=== PATIENT | female | born 1980 | race Two or more races ===

== ENCOUNTER 2019-04-06 14:16 | Emergency (ER) | payer MEDICAID ==
[~2019-04-06] VITALS: Ht 167.6 cm; Wt 81.6 kg
[2019-04-06 15:50] VITALS: BP 132/68
[2019-04-06] MEDS ORDERED: ACETAMINOPHEN 500 MG TAB PO ONE (16:00)
== END 2019-04-06 16:19 | disposition home or self-care (01) ==
LOC: ER 14:16
DX: M48.02 Spinal stenosis, cervical region (principal); G44.309 Post-traumatic headache, unspecified, not intractable
CPT/HCPCS: 70450; 72125

== ENCOUNTER 2019-05-24 09:17 | Emergency (ER) | payer MEDICAID ==
[~2019-05-24] VITALS: Ht 167.6 cm; Wt 81.6 kg
[2019-05-24 09:24] VITALS: BP 121/70
[2019-05-24] MEDS ORDERED: IBUPROFEN 800 MG TAB PO ONE (11:00)
[2019-05-24] MEDS ORDERED: cefTRIAXone SOD 1,000 MG VL IM ONE (11:00)
== END 2019-05-24 11:18 | disposition home or self-care (01) ==
LOC: ER 09:17
DX: L03.115 Cellulitis of right lower limb (principal)
CPT/HCPCS: 96372; 99283; J0696

== ENCOUNTER 2019-05-30 10:23 | Emergency (ER) | payer MEDICAID ==
[~2019-05-30] VITALS: Ht 167.6 cm; Wt 81.6 kg
[2019-05-30 10:33] VITALS: BP 118/73
== END 2019-05-30 11:27 | disposition home or self-care (01) ==
LOC: ER 10:23
DX: Z48.01 Encounter for change or removal of surgical wound dressing (principal)

== ENCOUNTER 2024-05-21 13:22 | Emergency (ER) | payer MEDICAID ==
[~2024-05-21] VITALS: Ht 167.6 cm; Wt 77.3 kg
[2024-05-21 15:17] VITALS: TEMP 98.9; O2SAT 100
[2024-05-21] MEDS: LIDOCAINE W/ EPINEPHRINE 1% 20ML VIAL ID ONE (15:51)
[2024-05-21] MEDS: TETANUS-DIPTH-ACEL PERTUSSIS 0.5ML SYR Tdap IM ONE (16:02)
[2024-05-21 16:03] VITALS: BP 199/116; PULSE 18; RESP 18
[2024-05-21] MEDS: MORPHINE SULFATE 4 MG/ML SYR/VIAL IV ONE (16:03)
[2024-05-21] MEDS: AMPICILLIN & SULBACTAM SODIUM 3 GM in SODIUM CHL 0.9% 100 ML IV ONE (16:20)
[2024-05-21] MEDS: BACITRACIN TOP OINT 1 UD PKG TOP ONE (17:18)
[2024-05-21] MEDS ORDERED: HYDR-4902 PO (17:46)
[2024-05-21] MEDS ORDERED: AUG875T PO (17:46)
--- NOTE | 2024-05-21 17:48 | ED.PDOC ---
HPI Comments Kelsey Juarez is a 44-year-old female with past medical history of hysterectomy and cholecystectomy who presents to the ED s/p dog bite x 1 day. Animal was a Minesh Corse Immunization status up-to-date Denies abnormal animal behavior Denies history of immunocompromise (HIV hep B hep C) Denies fever chills night sweats Denies redness around the area Chief Complaint: Animal Bite Time Seen by MD: 14:27 Primary Care Provider: NONE Reviewed Notes: Nurses Notes, Medications, Allergies Allergies: Coded Allergies: NO KNOWN ALLERGIES (Unverified , 12/04/14) Home Meds Active Scripts Amoxicillin & Pot Clavulanate (AUGMENTIN TABLET) 875 Mg Tb, 875 MG PO BID for 10 Days, #20 TAB 0 Refills Prov:MANAV MCNEIL PROCESS ARCHITECT 05/21/24 Hydrocodone-Acetaminophen (Hydrocodone Bitartrate/AC 5-325 mg) 1 Tab Tab, 1 TAB PO Q6HP PRN for 3 Days, #12 TAB 0 Refills Prov:MANAV MCNEIL PROCESS ARCHITECT 05/21/24 Information Source: Patient Mode of Arrival: EMS Complexity: Complex Laceration Length (cm): 4 Skin Type: Jagged Depth of Injury: Skin Tendon Injury: 0% Capillary Refill: < 3 seconds Tender: Severe Discharge: None Erythema: Localized to Wound Edges Past Medical History PAST MEDICAL HISTORY: Denies Surgical History: Denies all surgeries SHAREPOINT SOLUTIONS ARCHITECT History: Denies all SHAREPOINT SOLUTIONS ARCHITECT Hx Family History Family History: Reviewed,noncontributory to illness Social History Smoker: Non-Smoker Lives In: Home All Other Systems: Reviewed and Negative (Per HPI) Physical Exam General Appearance: No Apparent Distress, Normal HEENT: Normal ENT Inspection, Pharynx Normal, TMs Normal Neck: Full Range of Motion, Non-Tender, Normal, Normal Inspection Respiratory: Chest Non-Tender, Lungs Clear, No Accessory Muscle Use, No Respiratory Distress, Normal Breath Sounds Cardiovascular: No Edema, No JVD, No Murmur, No Gallop, Normal Peripheral Pulses, Regular Rate/Rhythm Breast Exam: Deferred Gastrointestinal: No Organomegaly, Non Tender, No Pulsatile Mass, Normal Bowel Sounds, Soft Genitalia: Deferred Pelvic: Deferred Rectal: Deferred Extremities: No calf tenderness, Normal capillary refill, Normal inspection, Normal range of motion, Non-tender, No pedal edema Musculoskeletal : Apperance: Normal Neurologic: Alert, No Motor Deficits, Normal Affect, Normal Mood, No Sensory Deficits Cerebellar Function: Normal Reflexes: Normal Skin: Dry, Normal Color, Warm Lymphatic: No Adenopathy Was a procedure done? Was a procedure done?: Yes Sedation Sedation?: No Laceration Repair : Location Left medial AC Length 3 Anesthetic: Lidocaine Laceration Repair Prep: Saline, by Irrigation, Manual Scrub Laceration Repair Wound Comple: epidermis/dermis repair Laceration Repair: Size (4-0), Simple, Bacitracin, Non-adherent gauze, Gauze Informed consent obtained: Yes Risks, benefits, and alternati: Yes Differential diagnosis Generic Laceration: Abrasion/Contusion, Laceration, Avulsion X-Ray, Labs, Meds, VS Vital Signs Date Time Temp Pulse Resp B/P (MAP) Pulse Ox O2 Delivery O2 Flow Rate FiO2 05/21/24 16:03 18 18 199/116 05/21/24 15:17 98.9 98 14 120/69 (86) 100 98.9 05/21/24 13:30 98.9 98 14 120/89 (99) 100 X-Ray, Labs, Meds, VS Comment Procedure-laceration repair Location: 2.5 cm laceration to left medial ac, 2.5 cm lac to left medial proxim al ulnar, 5 cm laceration to left forearm shaft,, 1 cm lac to left lateral prox radius, 1 cm puncture wound, 2 cm x 1.5 cm lac to left proximal ulnar, 1 cm puncture wound, .75 cm puncture wound, 5 cm right proximal medial humerus 17 stitches total The skin edges of the laceration were infiltrated with 1% lidocaine The skin surrounding the laceration was scrubbed with Betadine soaked sterile gauze The laceration was irrigated under high-pressure with a 60 mL syringe A total of 2L sterile water was used. Including diluted Betadine solution The laceration was prepped in sterile fashion with sterile drapes On examination under direct light, there was no foreign body seen The laceration was repaired in simple interrupted technique using There was no continuing bleeding on repair. There were no complications related to repair In the ER patient received IV antibiotics and tetanus was updated. Patient prescribed with the Augmentin x7 days. Advised to return in two days or sooner for wound check Keep wound dry for 24 to 48 hours; dry dressing may be changed Protect from sunlight and keep area clean and dry. Use soap and water if it ge ts dirty High risk of possible scarring and education provided on ways to minimize scarring after wound heals Also provided education on possible complications post procedure including wound dehiscence, infection, etc. Time of 1ST Reevaluation: 18:00 Reevaluation 1ST: Improved Patient Education/Counseling: Diagnosis, Treatment Family Education/Counseling: Diagnosis, Treatment Departure 1 Departure Time of Disposition: 18:52 Impression: Primary Impression: Dog bite Qualified Codes: W54.0XXA - Bitten by dog, initial encounter Disposition: HOME / SELF CARE / HOMELESS Condition: Fair e-Prescriptions Amoxicillin & Pot Clavulanate (AUGMENTIN TABLET) 875 Mg Tb 875 MG PO BID for 10 Days, #20 TAB 0 Refills Prov: MANAV MCNEIL PROCESS ARCHITECT 05/21/24 Hydrocodone-Acetaminophen (Hydrocodone Bitartrate/AC 5-325 mg) 1 Tab Tab 1 TAB PO Q6HP PRN for 3 Days, #12 TAB 0 Refills Prov: MANAV MCNEIL PROCESS ARCHITECT 05/21/24 Critical Care Note Critical Care Time?: No Stability Stability form required: No Heart Score Heart Score: Heart Score Response (Comments) Value History N/A 0 EKG N/A 0 Age N/A 0 Risk Factors N/A 0 Troponin N/A 0 Total 0 MANAV MCNEIL NP May 21, 2024 17:48
--- NOTE | 2024-05-21 18:10 | DVH ---
EXAM: XY R HAND 3 VIEW XRAY CLINICAL HISTORY: dog bite COMPARISON: None TECHNIQUE: XY R HAND 3 VIEW XRAY Findings/Impression: 3 views of the right hand. There is no evidence of an acute fracture, dislocation, blastic, or lytic lesions. No radiopaque foreign bodies. No superficial soft tissue abnormalities.
--- NOTE | 2024-05-21 18:12 | DVH ---
EXAM: XY L FOREARM XRAY CLINICAL HISTORY: dog bite COMPARISON: None TECHNIQUE: XY L FOREARM XRAY Findings/Impression: 2 views of the left forearm. There is no evidence of an acute fracture, dislocation, blastic, or lytic lesions. No radiopaque foreign bodies. Mild to moderate soft tissue edema with minimal subcutaneous emphysema.
--- NOTE | 2024-05-21 18:12 | DVH ---
EXAM: XY R FOREARM XRAY CLINICAL HISTORY: dog bite COMPARISON: None TECHNIQUE: XY R FOREARM XRAY Findings/Impression: 2 views of the right forearm. There is no evidence of an acute fracture, dislocation, blastic, or lytic lesions. No radiopaque foreign bodies. Mild soft tissue edema.
== END 2024-05-21 17:51 | disposition home or self-care (01) ==
LOC: ER 13:22 → EDBD 13:22 → ER 17:51
DX: S61.452A Open bite of left hand, initial encounter (principal); X58.XXXA Exposure to other specified factors, initial encounter; Y93.89 Activity, other specified; Y92.89 Other specified places as the place of occurrence of the external cause; Y99.8 Other external cause status
CPT/HCPCS: 12005; 73090; 73130; 90471; 90715; 96365; 96375; 99284; J2270; J7040

== ENCOUNTER 2024-05-23 06:56 | Inpatient (IN) | payer MEDICAID ==
[~2024-05-23] VITALS: Ht 167.6 cm; Wt 84.8 kg
[~2024-05-23 06:56] MED LIST: AUG875T PO; HYDR-4902 PO
--- NOTE | 2024-05-23 07:42 | ED.PDOC ---
History of Present Illness HPI Comments 44-year-old female came to the ER for follow up after dog bite. She did get bit by her dog on Tuesday for which she came in this hospital for care. She had her stitches placed in the left and right arm. She is currently on antibiotics. She states that her arm is swelling up since the injury. Denies any other symptoms. Chief Complaint: Wound Check Time Seen by MD: 07:37 Primary Care Provider: NONE Reviewed Notes: Nurses Notes, Medications, Allergies Allergies: Coded Allergies: NO KNOWN ALLERGIES (Unverified , 12/04/14) Home Meds Active Scripts Amoxicillin & Pot Clavulanate (AUGMENTIN TABLET) 875 Mg Tb, 875 MG PO BID for 10 Days, #20 TAB 0 Refills Prov:MANAV MCNEIL CRUCIBLE FURNACE TENDER 05/21/24 Hydrocodone-Acetaminophen (Hydrocodone Bitartrate/AC 5-325 mg) 1 Tab Tab, 1 TAB PO Q6HP PRN for 3 Days, #12 TAB 0 Refills Prov:MANAV MCNEIL CRUCIBLE FURNACE TENDER 05/21/24 Information Source: Patient Mode of Arrival: Ambulatory Severity: Moderate Timing: Days Duration: Since onset Past Medical History PAST MEDICAL HISTORY: Denies Surgical History: Denies all surgeries JAVASCRIPT FRONT END DEVELOPER History: Denies all JAVASCRIPT FRONT END DEVELOPER Hx Family History Family History: Reviewed,noncontributory to illness Social History Smoker: Non-Smoker Alcohol: Denies ETOH Use Drugs: Denies Drug Use Lives In: Home Constitutional: denies: chills, diaphoresis, fatigue, fever, malaise, sweats, weakness, others EENTM: denies: blurred vision, double vision, ear bleeding, ear discharge, ear drainage, ear pain, ear ringing, eye pain, eye redness, hearing loss, mouth pain, mouth swelling, nasal discharge, nose bleeding, nose congestion, nose p ain, photophobia, tearing, throat pain, throat swelling, voice changes, others Respiratory: denies: cough, hemoptysis, orthopnea, SOB at rest, shortness of breath, SOB with excertion, stridor, wheezing, others Cardiovascular: denies: chest pain, dizzy spells, diaphoresis, Dyspnea on exertion, edema, irregular heart beat, left arm pain, lightheadedness, palpitations, PND, syncope, others Gastrointestinal: denies: abdomen distended, abdominal pain, blood streaked bowels, constipated, diarrhea, dysphagia, difficulty swallowing, hematemesis, melena, nausea, poor appetite, poor fluid intake, rectal bleeding, rectal pain, vomiting, others Genitourinary: denies: abnormal vagina bleeding, burning, dyspareunia, dysuria, flank pain, frequency, hematuria, incontinence, pain, , vagina discharge, urgency, others Neurological: denies: dizziness, fainting, headache, left sided numbness, left sided weakness, numbness, paresthesia, pre-existing deficit, right sided numbness, right sided weakness, seizure, speech problems, tingling, tremors, weakness, others Musculoskeletal: denies: back pain, gout, joint pain, joint swelling, muscle pain, muscle stiffness, neck pain, others Integumetry: reports: wounds (Left right arm); denies: bruises, change in color, change in hair/nails, dryness, laceration, lesions, lumps, rash, others Allergic/Immunocompromised: denies: Difficulty Healing, Frequent Infections, Hives, Itching, others Hematologic/Lymphatic: denies: anemia, blood clots, easy bleeding, easy bruising, swollen glands, others Endocrine: denies: excessive hunger, excessive sweating, excessive thirst, excessive urination, flushing, intolerance to cold, intolerance to heat, unexplained weight gain, unexplained weight loss, others Psychiatric: denies: anxiety, bipolar disorder, depression, hopeless, panic disorder, schizophrenia, sleepless, suicidal, others Physical Exam General Appearance: Moderate Distress HEENT: Normal ENT Inspection, Pharynx Normal, TMs Normal Neck: Full Range of Motion, Non-Tender, Normal, Normal Inspection Respiratory: Chest Non-Tender, Lungs Clear, No Accessory Muscle Use, No Respiratory Distress, Normal Breath Sounds Cardiovascular: No Edema, No JVD, No Murmur, No Gallop, Normal Peripheral Pulses, Regular Rate/Rhythm Breast Exam: Deferred Gastrointestinal: No Organomegaly, Non Tender, No Pulsatile Mass, Normal Bowel Sounds, Soft Genitalia: Deferred Pelvic: Deferred Rectal: Deferred Extremities: No calf tenderness, Normal capillary refill, Normal inspection, Normal range of motion, Non-tender, No pedal edema Musculoskeletal : Apperance: Normal Neurologic: Alert, helicopter crew chief II-XII nml as Tested, No Motor Deficits, Normal Affect, Normal Mood, No Sensory Deficits Cerebellar Function: Normal Reflexes: Normal Skin: Bruises (Left right arm), Wounds (Left right arm) Peripheral Pulses: 3+ Radial (R), 3+ Radial (L) Lymphatic: No Adenopathy Was a procedure done? Was a procedure done?: No Differential Dx Considerations may include: Cellulitis Electrolyte imbalance X-Ray, Labs, Meds, VS Patient alert. Came in for follow up for dog bite. Has swelling at the injured site. Vitals stable. Answering all questions. Establish intravenous access. Was given intravenous antibiotics pain Reviewed her previous visit. Explained to the patient. Continue cardiac monitoring. Time of 1ST Reevaluation: 07:40 Reevaluation 1ST: Unchanged Patient Education/Counseling: Diagnosis, Treatment, Prognosis, Need For Follow Up Family Education/Counseling: No Family Present Departure 1 Departure Time of Disposition: 07:41 Impression: Primary Impression: Cellulitis Qualified Codes: L03.114 - Cellulitis of left upper limb Disposition: ADMITTED INPATIENT Admit to: Med Surg Condition: Guarded Critical Care Note Critical Care Time?: No Stability Stability form required: No Heart Score Heart Score: Heart Score Response (Comments) Value History N/A 0 EKG N/A 0 Age N/A 0 Risk Factors N/A 0 Troponin N/A 0 Total 0 JOSIAH THOMAS MD May 23, 2024 07:42
[2024-05-23 08:20] VITALS: PULSE 94; RESP 12; O2SAT 98
[2024-05-23 08:23] LABS: Basophils # (auto) 0 10 ^3/uL (0-0.2); Basophils % (auto) 0.2 % (0.0-2.0); Eosinophils # (auto) 0.1 10 ^3/uL (0-0.8); Eosinophils % (auto) 0.9 % (0.0-7.0); Hematocrit 41.4 % (36.0-46.0); Hemoglobin 14.5 g/dL (12.2-16.2); Lymphocytes # (auto) 0.9 10 ^3/uL (0.4-5.4); Lymphocytes % (auto) 14.3 % (10.0-50.0); Mean Corpuscular Hemoglobin 30.2 pg (28.0-32.0); Mean Corpuscular Hgb Conc. 35.1 g/dL (32.0-36.0); Mean Corpuscular Volume 86.1 fL (80.0-100.0); Monocytes # (auto) 0.3 10 ^3/uL (0-1.3); Monocytes % (auto) 5.2 % (0.0-12.0); Neutrophils # (auto) 5.2 10 ^3/uL (1.6-8.6); Neutrophils % (auto) 79.4 % (37.0-80.0); Platelet Count (auto) 276 10^3/uL (140-450); Red Blood Cells 4.81 10^6/uL (4.0-5.20); Red Cell Distribution Width 14.3 % (11.8-14.3); White Blood Cell 6.6 10^3/uL (4.4-10.8)
[2024-05-23 08:29] LABS: Chloride 105 mmol/L (98-107); Potassium 3.9 mmol/L (3.5-5.1); Sodium 138 mmol/L (136-145)
[2024-05-23 08:30] LABS: Anion Gap 8 (5-15); Carbon Dioxide 25 mmol/L (20-31)
[2024-05-23 08:31] LABS: Calcium 9.6 mg/dL (8.7-10.4)
[2024-05-23] MEDS: SODIUM CHLORIDE 0.9% 1,000 ML IV ONE (08:31)
[2024-05-23] MEDS: cefTRIAXone 1GM/50ML D5W 50 ML IV ONE (08:33)
[2024-05-23 08:36] LABS: BUN/Creatinine Ratio 8.6 (10.0-20.0)
[2024-05-23 08:37] LABS: Blood Urea Nitrogen 7 mg/dL (9-23); Glucose 120 mg/dL (74-106)
[2024-05-23] MEDS: CLINDAMYCIN 300MG IV 50 ML IV ONE (08:59)
[2024-05-23] MEDS: ONDANSETRON HCL 4 MG/2 ML VIAL IV ONE (09:16)
[2024-05-23] MEDS: MORPHINE SULFATE INJ 2 MG/ml SYRG IV ONE (09:17)
--- NOTE | 2024-05-23 09:28 | DVHHP2 ---
History of Present Illness Reason for Visit: Pain and swelling bilateral upper arm History of Present Illness Kelsey Juarez is a 44-year-old female with past medical history of hysterectomy and cholecystectomy who presents to the ED were bilateral upper arm pain and swelling after a dog bite that occurred on Tuesday. The patient reports that she had stitches placed in the back because of increasing pain and swelling. Patient reports that left arm is worse in the right and complaining of shortness of breath. Patient reports that it is a new dog that they just took in. Patient denies any chest pain, fever, chills, abdominal pain, nausea, vomiting, diarrhea, lightheadedness, and dizziness. Past Surgical History: Cholecystectomy, Hysterectomy Family History: Cancer, DM, Hyperlipidemia, Other (Mom with diabetes and pancreatic cancer, dad with hyperlipidemia) Smoke: No ALCOHOL: none Drugs: None Lives: with Family Domestic Violence: Neg Review of Systems Constitutional: No: Fever, Chills, Sweats, Weakness, Malaise, Other Eyes: No: Pain, Vision change, Conjunctivae inflammation, Eyelid inflammation, Other, Redness ENT: No: Ear pain, Ear discharge, Nose pain, Nose discharge, Nose congestion, Mouth pain, Mouth swelling, Throat pain, Throat swelling, Other Respiratory: Shortness of breath; No: Cough, Dry, SOB with excertion, Wheezing, Hemoptysis, Pleuritic Pain, Sputum, Wheezing, Other Cardiovascular: No: Chest Pain, Palpitations, Orthopnea, Paroxysmal Noc. Dyspnea, Edema, Lt Headedness, Other Gastrointestinal: No: Nausea, Vomiting, Abdominal Pain, Diarrhea, Constipation, Melena, Hematochezia, Other Genitourinary: No Dysuria, No Frequency, No Incontinence, No Hematuria, No Retention, No Other Musculoskeletal: arm pain Skin: Bruising, Other (Multiple sutures in place on bilateral upper arms) Neurological: No: Weakness, Numbness, Incoordination, Change in speech, Confusion, Seizures, Other Allergies: Coded Allergies: NO KNOWN ALLERGIES (Unverified , 12/04/14) Medications Current Medications Medications Dose Ordered Sig/Gisele Route Start Time Stop Time Status Last Admin Dose Admin Ceftriaxone Sodium 50 ml @ 100 mls/hr DAILY@09 IV 05/24/24 09:00 UNV Clindamycin Phosphate 50 ml @ 50 mls/hr Q8HR IV 05/23/24 14:00 UNV Acetaminophen/ Hydrocodone Bitart 1 tab Q4HP PRN PO 05/23/24 09:15 UNV Ondansetron HCl 4 mg Q4HP PRN IV 05/23/24 09:15 UNV Acetaminophen 650 mg Q6HP PRN PO 05/23/24 09:15 UNV Morphine Sulfate 2 mg Q4HPRN PRN IV 05/23/24 09:15 UNV Exam Vital Signs Vital Signs Date Time Temp Pulse Resp B/P (MAP) Pulse Ox O2 Delivery O2 Flow Rate FiO2 05/23/24 09:17 81 16 142/90 05/23/24 08:20 98 Room Air* 0 21 05/23/24 08:12 97.7 97.7 General Appearance: Alert, Oriented X3, Cooperative, mild distress HEENT: Atraumatic, PERRLA, EOMI, Mucous membr. moist/pink Respiratory: Normal air movement Cardiovascular: Regular rate, Normal S1, Normal S2, No murmurs Abdominal: Normal bowel sounds, Soft, No tenderness, No hepatospenomegaly, No masses Extremities: No cyanosis Neuro: Normal gait, Normal speech, Strength at 5/5 X4 ext, Normal tone, Sensation intact Psych/Mental Status: Mental status NL, Mood NL Labs/Xrays Labs Test 05/23/24 08:10 Range/Units White Blood Count 6.6 4.4-10.8 10^3/uL Red Blood Count 4.81 4.0-5.20 10^6/uL Hemoglobin 14.5 12.2-16.2 g/dL Hematocrit 41.4 36.0-46.0 % Mean Corpuscular Volume 86.1 80.0-100.0 fL Mean Corpuscular Hemoglobin 30.2 28.0-32.0 pg Mean Corpuscular Hemoglobin Concent 35.1 32.0-36.0 g/dL Red Cell Distribution Width 14.3 11.8-14.3 % Platelet Count 276 140-450 10^3/uL Mean Platelet Volume 7.6 6.9-10.8 fL Neutrophils (%) (Auto) 79.4 37.0-80.0 % Lymphocytes (%) (Auto) 14.3 10.0-50.0 % Monocytes (%) (Auto) 5.2 0.0-12.0 % Eosinophils (%) (Auto) 0.9 0.0-7.0 % Basophils (%) (Auto) 0.2 0.0-2.0 % Neutrophils # (Auto) 5.2 1.6-8.6 10 ^3/uL Lymphocytes # (Auto) 0.9 0.4-5.4 10 ^3/uL Monocytes # (Auto) 0.3 0-1.3 10 ^3/uL Eosinophils # (Auto) 0.1 0-0.8 10 ^3/uL Basophils # (Auto) 0 0-0.2 10 ^3/uL Nucleated Red Blood Cells 0.0 % Sodium Level 138 136-145 mmol/L Potassium Level 3.9 3.5-5.1 mmol/L Chloride Level 105 98-107 mmol/L Carbon Dioxide Level 25 20-31 mmol/L Anion Gap 8 5-15 Blood Urea Nitrogen 7 L 9-23 mg/dL Creatinine 0.81 0.550-1.02 mg/dL Glomerular Filtration Rate Calc 92 >90 mL/min BUN/Creatinine Ratio 8.6 L 10.0-20.0 Serum Glucose 120 H 74-106 mg/dL Calcium Level 9.6 8.7-10.4 mg/dL Assessment/Plan Assessment/Plan Assessment/Plan: Bilateral upper arm cellulitis IV antibiotics-ceftriaxone + clindamycin NS 1 L given ED UA Lactic acid Blood cultures CT bilateral upper arms Labs A.m. labs Wound culture Antiemetics Pain management Chest x-ray Bacitracin ointment FEN/PPX Diet Hep-Lock DVT prophylaxis-not indicated patient ambulating PUD prophylaxis-not indicated no history of GERD or GI bleed Admit to [facility] Discussed plan of care with patient and nurse No home medications to reconcile Plan discussed with: Patient My Orders Orders - SANA RAMIREZ QUARRY BOSS Procedure Category Date Status Time Ceftriaxone 1gm/50ml PHA 05/24/24 Logged D5w (Rocephin) 09:00 Clindamycin 600mg Iv PHA 05/23/24 Logged (Cleocin Iv) 14:00 Admit ADMIT 05/23/24 Transmitted 09:11 Allergies ANGELIKA 05/23/24 In Process 09:11 Code Status CODE 05/23/24 Transmitted 09:11 Hydrocodone-Acet PHA 05/23/24 Logged 5/325mg Tab ([place] 09:15 Ondansetron Hcl PHA 05/23/24 Logged (Zofran) 09:15 Complete Blood Count LAB 05/24/24 Verified 04:00 Comprehensive LAB 05/24/24 Verified Metabolic Panel 04:00 Acetaminophen Tablet PHA 05/23/24 Logged (Tylenol Tablet) 09:15 Morphine Sulfate PHA 05/23/24 Logged Injection 09:15 Regular Diet DIET 05/23/24 Transmitted Breakfast Upper Extremity Wo CT 05/23/24 Logged Contrast 09:11 Date of Service: May 23, 2024 Billing Provider: SANA RAMIREZ Common Visit Codes: [id number] INP/OBS CARE (HIGH) SANA RAMIREZP May 23, 2024 09:28
--- NOTE | 2024-05-23 10:08 | DVH ---
XY CHEST XRAY 1 VIEW, HISTORY: sob COMPARISON: None None TECHNICAL DATA: 1 view of the chest was obtained. FINDINGS: Lines and tubes: None Cardiomediastinal silhouette: normal Pulmonary vasculature: normal Lung expansion: normal Lung airspace: normal Lung interstitium: normal Pleura: normal Pneumothorax: no Bones: Unremarkable Other: no IMPRESSION: No acute intrathoracic abnormality.
--- NOTE | 2024-05-23 10:25 | DVH ---
CLINICAL INDICATION: 44 years old, Female; pain and swelling. TECHNIQUE: Noncontrast CT of the right humerus and axial images through the left humerus was performe d. Sagittal and coronal reformatted images are provided. COMPARISON: None CT Dose: CTDI volume is 27.36 mGy. Dose-length product is 1770.67 mGy*cm FINDINGS: No fracture or dislocation. No cortical destruction. Mild soft tissue edema in the right shoulder at the level of the deltoid muscle. Mild edema in the posterior distal right arm. No evidence of soft tissue swelling or edema in the left arm. IMPRESSION: 1. Mild edema in the right arm. No fluid collection. No cortical destruction to suggest osteomyeliti s. All CT scans at this medical facility are performed using dose modulation techniques as appropriate t o a performed exam including the following: Automated exposure control was utilized; adjustment of th e MA and/or KV according to patient size; and use of iterative reconstruction technique.
[2024-05-23 11:04] VITALS: BP 119/72; PULSE 79; RESP 18; TEMP 98.1; O2SAT 79; O2SAT 94
[2024-05-23] MEDS: CLINDAMYCIN 600MG IV 50 ML IV SCH (13:58)
[2024-05-23] MEDS: BACITRACIN TOP OINT 1 UD PKG TOP SCH (13:58)
[2024-05-23] MEDS: ONDANSETRON HCL 4 MG/2 ML VIAL IV PRN (15:17)
[2024-05-23] MEDS: MORPHINE SULFATE INJ 2 MG/ml SYRG IV PRN (15:17)
[2024-05-23 17:00] VITALS: BP 121/73; PULSE 87; RESP 16; TEMP 98.3; O2SAT 95
[2024-05-23] MEDS: HYDROcodone-ACET 5/325MG TAB PO PRN (20:32)
[2024-05-23 21:00] VITALS: BP 146/84; PULSE 84; RESP 18; TEMP 97.7; O2SAT 98
[2024-05-24] VITALS (8 sets, daily range): BP systolic 107–145; BP diastolic 66–92; PULSE 75–86; RESP 17–20; TEMP 97.3–98.8; O2SAT 96–99
[2024-05-24] MEDS: cefTRIAXone 1GM/50ML D5W 50 ML IV SCH (09:26)
[2024-05-24 10:11] LABS: Albumin 4.4 g/dL (3.2-4.8); Anion Gap 8 (5-15); BUN/Creatinine Ratio 7.9 (10.0-20.0); Calcium 9.5 mg/dL (8.7-10.4); Carbon Dioxide 23 mmol/L (20-31); Potassium 3.7 mmol/L (3.5-5.1); Sodium 138 mmol/L (136-145)
[2024-05-24 10:12] LABS: Total Protein 6.9 g/dL (5.7-8.2)
[2024-05-24 10:18] LABS: Basophils # (auto) 0 10 ^3/uL (0-0.2); Basophils % (auto) 0.2 % (0.0-2.0); Eosinophils # (auto) 0.1 10 ^3/uL (0-0.8); Eosinophils % (auto) 1.3 % (0.0-7.0); Hematocrit 40.6 % (36.0-46.0); Hemoglobin 13.9 g/dL (12.2-16.2); Lymphocytes # (auto) 0.5 10 ^3/uL (0.4-5.4); Lymphocytes % (auto) 8.2 % (10.0-50.0); Mean Corpuscular Hemoglobin 30.1 pg (28.0-32.0); Mean Corpuscular Hgb Conc. 34.1 g/dL (32.0-36.0); Mean Corpuscular Volume 88.2 fL (80.0-100.0); Monocytes # (auto) 0.3 10 ^3/uL (0-1.3); Monocytes % (auto) 5.1 % (0.0-12.0); Neutrophils % (auto) 85.2 % (37.0-80.0); Platelet Count (auto) 219 10^3/uL (140-450); Red Blood Cells 4.61 10^6/uL (4.0-5.20); Red Cell Distribution Width 13.9 % (11.8-14.3); White Blood Cell 5.9 10^3/uL (4.4-10.8)
[2024-05-24 10:26] LABS: Alanine Aminotransferase 234 U/L (7-40); Alkaline Phosphatase 130 U/L (46-116); Aspartate Aminotransferase 273 U/L (13-40); Bilirubin, Total 1.3 mg/dL (0.2-1.0); Blood Urea Nitrogen 5 mg/dL (9-23); Chloride 107 mmol/L (98-107); Glucose 106 mg/dL (74-106)
--- NOTE | 2024-05-24 13:16 | DVHPN2 ---
Reviewed: Care Plan, H&P, Labs, Medications, Previous Orders, Radiology Changes from previous H/P or p: No Changes Eyes: No Pain, No Vision change, No Conjunctivae inflammation, No Eyelid inflammation, No Other, No Redness ENT: No Ear pain, No Ear discharge, No Nose pain, No Nose discharge, No Nose congestion, No Mouth pain, No Mouth swelling, No Throat pain, No Throat swelling, No Other Cardiovascular: No Chest Pain, No Palpitations, No Orthopnea, No Paroxysmal Noc. Dyspnea, No Edema, No Lt Headedness, No Other Respiratory: No Cough, No Dry; Shortness of breath; No SOB with excertion, No Wheezing, No Hemoptysis, No Pleuritic Pain, No Sputum, No Other Gastrointestinal: No Nausea, No Vomiting, No Abdominal Pain, No Diarrhea, No Constipation, No Melena, No Hematochezia, No Other Genitourinary: No Dysuria, No Frequency, No Incontinence, No Hematuria, No Retention, No Other Musculoskeletal: arm pain Skin: Bruising, Other (Multiple sutures in place on bilateral upper arms) Objective Vitals Vital Signs Date Time Temp Pulse Resp B/P (MAP) Pulse Ox O2 Delivery O2 Flow Rate FiO2 05/24/24 08:46 97.3 82 18 132/83 (99) 99 97.3 05/24/24 08:00 Room Air* 0 21 Intake/Output Intake and Output 05/24/24 07:00 Intake Total 500 ml Balance 500 ml Intake Oral 300 ml IV Total 200 ml # Voids 1 Medications Current Medications Medications Dose Ordered Sig/Gisele Route Start Time Stop Time Status Last Admin Dose Admin Ceftriaxone Sodium 50 ml @ 100 mls/hr DAILY@09 IV 05/24/24 09:00 05/24/24 09:26 100 MLS/HR Clindamycin Phosphate 50 ml @ 50 mls/hr Q8HR IV 05/23/24 14:00 05/24/24 05:07 50 MLS/HR Acetaminophen/ Hydrocodone Bitart 1 tab Q4HP PRN PO 05/23/24 09:15 05/24/24 09:26 1 TAB Ondansetron HCl 4 mg Q4HP PRN IV 05/23/24 09:15 05/23/24 15:17 4 MG Acetaminophen 650 mg Q6HP PRN PO 05/23/24 09:15 Morphine Sulfate 2 mg Q4HPRN PRN IV 05/23/24 09:15 05/23/24 15:17 2 MG Bacitracin 1 applic TID TOP 05/23/24 14:00 05/24/24 05:06 1 APPLIC Laboratory Results Laboratory Tests 05/24/24 09:05 Chemistry Test 05/24/24 09:05 Albumin 4.4 g/dL (3.2-4.8) Calcium Level 9.5 mg/dL (8.7-10.4) Total Protein 6.9 g/dL (5.7-8.2) LFT Test 05/24/24 09:05 Alanine Aminotransferase (ALT) 234 U/L (7-40) H Alkaline Phosphatase 130 U/L (46-116) H Aspartate Amino Transferase (AST) 273 U/L (13-40) H Total Bilirubin 1.3 mg/dL (0.2-1.0) H Microbiology Microbiology Date/Time Source Procedure Growth Status 05/23/24 10:17 Blood Blood Culture - Preliminary NO GROWTH AFTER 24 HOURS OF INCUBATION. Resulted Labs and/or images reviewed: Labs reviewed by me, Image(s) reviewed by me Assessment/Plan Assessment/Plan Cellulitis bilateral upper extremityies secondary to dog bite: Rocephin clindamycin pain medication Acute dehydration: IV fluids CT right upper and left upper extremity negative for any osteomyelitis Plan discussed with: Patient Date of Service: May 24, 2024 Billing Provider: DAMIEN LEIGH MD Common Visit Codes: [id number] INP/OBS CARE(HIGH) DAMIEN LEIGH MD May 24, 2024 13:15
[2024-05-24] MEDS: SODIUM CHLORIDE 0.9% 1,000 ML IV SCH (14:58)
[2024-05-25] VITALS (11 sets, daily range): BP systolic 110–140; BP diastolic 64–97; PULSE 71–83; RESP 12–21; TEMP 97.9–98.9; O2SAT 92–98
--- NOTE | 2024-05-25 09:52 | DVHPN2 ---
Reviewed: Care Plan, H&P, Labs, Medications, Previous Orders, Radiology Changes from previous H/P or p: No Changes Eyes: No Pain, No Vision change, No Conjunctivae inflammation, No Eyelid inflammation, No Other, No Redness ENT: No Ear pain, No Ear discharge, No Nose pain, No Nose discharge, No Nose congestion, No Mouth pain, No Mouth swelling, No Throat pain, No Throat swelling, No Other Cardiovascular: No Chest Pain, No Palpitations, No Orthopnea, No Paroxysmal Noc. Dyspnea, No Edema, No Lt Headedness, No Other Respiratory: No Cough, No Dry; Shortness of breath; No SOB with excertion, No Wheezing, No Hemoptysis, No Pleuritic Pain, No Sputum, No Other Gastrointestinal: No Nausea, No Vomiting, No Abdominal Pain, No Diarrhea, No Constipation, No Melena, No Hematochezia, No Other Genitourinary: No Dysuria, No Frequency, No Incontinence, No Hematuria, No Retention, No Other Musculoskeletal: arm pain Skin: Bruising, Other (Multiple sutures in place on bilateral upper arms) Objective Vitals Vital Signs Date Time Temp Pulse Resp B/P (MAP) Pulse Ox O2 Delivery O2 Flow Rate FiO2 05/25/24 08:30 98.0 79 16 119/77 (91) 98 98.0 05/24/24 20:00 Room Air* 0 21 Intake/Output Intake and Output 05/25/24 07:00 Intake Total 1950 ml Output Total 600 ml Balance 1350 ml Intake Oral 1900 ml IV Total 50 ml Output Urine Total 600 ml # Voids 3 Medications Current Medications Medications Dose Ordered Sig/Gisele Route Start Time Stop Time Status Last Admin Dose Admin Ceftriaxone Sodium 50 ml @ 100 mls/hr DAILY@09 IV 05/24/24 09:00 05/25/24 08:56 100 MLS/HR Clindamycin Phosphate 50 ml @ 50 mls/hr Q8HR IV 05/23/24 14:00 05/25/24 05:36 50 MLS/HR Acetaminophen/ Hydrocodone Bitart 1 tab Q4HP PRN PO 05/23/24 09:15 05/25/24 06:01 1 TAB Ondansetron HCl 4 mg Q4HP PRN IV 05/23/24 09:15 05/23/24 15:17 4 MG Acetaminophen 650 mg Q6HP PRN PO 05/23/24 09:15 Morphine Sulfate 2 mg Q4HPRN PRN IV 05/23/24 09:15 05/23/24 15:17 2 MG Bacitracin 1 applic TID TOP 05/23/24 14:00 05/25/24 05:36 1 APPLIC Sodium Chloride 1,000 ml @ 150 mls/hr Q6H40M IV 05/24/24 13:45 05/25/24 08:56 150 MLS/HR Laboratory Results Laboratory Tests 05/24/24 09:05 Microbiology Microbiology Date/Time Source Procedure Growth Status 05/23/24 12:59 Blood Blood Culture - Preliminary NO GROWTH AFTER 24 HOURS OF INCUBATION. Resulted Labs and/or images reviewed: Labs reviewed by me, Image(s) reviewed by me Assessment/Plan Assessment/Plan Cellulitis bilateral upper extremityies, left worse than the right, secondary to dog bite: Rocephin clindamycin pain medication cultures negative Acute dehydration: IV fluids CT right upper and left upper extremity negative for any osteomyelitis Patient Needs IV antibiotics for at least three weeks Pts cousin Shruti [phone] at bedside PICC line ordered Plan discussed with: Patient My Orders Orders - DAMIEN LEIGH MD Procedure Category Date Status Time Sodium Chloride 0.9% PHA 05/24/24 In Process 13:45 Blood Culture CARL[place] 05/24/24 In Process 13:37 Date of Service: May 25, 2024 Billing Provider: DAMIEN LEIGH MD Common Visit Codes: [id number] INP/OBS CARE(HIGH) DAMIEN LEIGH MD May 25, 2024 09:52
--- NOTE | 2024-05-25 10:41 | DVH ---
BILATERAL UPPER EXTREMITY VENOUS DOPPLER CLINICAL HISTORY: Cellulitis. TECHNIQUE: Upper extremity venous Doppler study was performed. Comparison: None FINDINGS: The right and left internal jugular, subclavian, axillary, brachial, basilic, cephalic, radial and ul kathe veins appear patent with normal augmentation, phasicity, compressibility and color-flow. IMPRESSION: 1. No sonographic evidence of DVT in the right and left upper extremity. HS:Y
[2024-05-25] MEDS: ENOXAPARIN SOD 40 MG/0.4 ML SYRINGE SC SCH (11:23)
[2024-05-25 11:49] LABS: Partial Thromboplastin Time 27.9 SEC (24.5-34.5); Prothrombin Time 10.6 sec (9.3-11.8)
[2024-05-25] MEDS: HEPARIN SODIUM (PORCINE) 5000 UNITS/ML 1ML VIAL ONE (14:13)
[2024-05-25] MEDS: MIDAZOLAM HCL 2MG/2ML 2ml VIAL (1mg/ml) ONE (14:13)
[2024-05-25] MEDS: fentaNYL CITRATE 100 MCG/2 ML VL ONE (14:13)
[2024-05-25] MEDS: LIDOCAINE 2%HCL (LOCAL ANESTH.) INJ 20ML MDV ONE (14:14)
[2024-05-25] MEDS: ceFAZolin 1GM/50ML 0 ML IV ONE (14:14)
[2024-05-25] MEDS: ROCURONIUM 10MG/ML 10ML VIAL IV ONE (14:57)
[2024-05-25] MEDS: ONDANSETRON HCL 4 MG/2 ML VIAL ONE (14:58)
--- NOTE | 2024-05-25 15:51 | DVH ---
XY Insertion of Venous Cath, HISTORY: INSERTION OF VENOUS CATHETER PROCEDURE: Informed consent was obtained. The patient was placed supine on the interventional table. A limited localization ultrasound of the right neck base was obtained. The right neck base and upper chest were prepped with chlorhexidine which was allowed to dry and draped in the usual sterile fashio n. Time out was performed. IV Fent only was administered. The skin and the soft tissues were infiltra isidro with 1% Lidocaine . With real-time ultrasound guidance, the internal jugular vein was accessed wi th a micropuncture kit, and an image documenting patency was recorded to PACS. A subcutaneous tunnele d tract was created from the right upper chest to the venotomy site. A 5 [place] dual lumen Power Line , 22 cm long cut to length catheter was advanced through the tunneled tract. Fluoroscopy was used to advance a guidewire through the internal jugular vein into the inferior vena cava. Following serial dilatation, a 5 [place] peel-away sheath was introduced, though which was advan sonia the catheter into the right atrium. The catheter tip position was confirmed with fluoroscopy. The re was satisfactory flow in both lumens. The catheter lumens were flushed with saline and heparin was left indwelling in the catheter. A post-procedure image of the chest was obtained. The neck incision site was closed with pressure and dressed sterilely. The catheter was sutured at the skin surface an d exit site also dressed sterilely. No immediate complication was identified. Air Kerma 3 mGy FLUOROSCOPY TIME: 0.9 minutes. FINDINGS: Widely patent right IJV. Post procedure image demonstrates smooth course of the Powerline c atheter with the tip in the right atrium. IMPRESSION: Successful placement of 5 [place] dual lumen Powerline, 22 cm long cut to length catheter through righ t internal jugular vein. Plan: Please contact IR for removal when no longer needed.
[2024-05-25 22:05] LABS: Urine Bacteria None Seen /hpf (None Seen)
[2024-05-25 22:12] LABS: COVID19 ANTIGEN SOFIA FIA NEGATIVE (NEGATIVE)
[2024-05-25 22:18] LABS: Urine Blood Negative /uL (Negative); Urine Clarity Clear (Clear); Urine Color Colorless (Yellow); Urine Protein, UAD Negative (Negative); Urine Specific Gravity 1.005 (1.001-1.035); Urine Squamous Epithelial Cell FEW /hpf (<5); Urine Urobilinogen Normal (Negative); Urine pH 6.5 (5.0-9.0)
[2024-05-25 22:25] LABS: Urine WBC < 1 /HPF (0-5)
[2024-05-26] VITALS (7 sets, daily range): BP systolic 113–138; BP diastolic 71–90; PULSE 19–87; RESP 18–79; TEMP 97.3–98.2; O2SAT 95–98
[2024-05-26 07:17] LABS: Basophils # (auto) 0 10 ^3/uL (0-0.2); Basophils % (auto) 0.3 % (0.0-2.0); Eosinophils # (auto) 0.1 10 ^3/uL (0-0.8); Eosinophils % (auto) 2.9 % (0.0-7.0); Hematocrit 36.9 % (36.0-46.0); Hemoglobin 12.6 g/dL (12.2-16.2); Lymphocytes # (auto) 0.9 10 ^3/uL (0.4-5.4); Lymphocytes % (auto) 16.4 % (10.0-50.0); Mean Corpuscular Hemoglobin 30.2 pg (28.0-32.0); Mean Corpuscular Hgb Conc. 34.1 g/dL (32.0-36.0); Mean Corpuscular Volume 88.6 fL (80.0-100.0); Monocytes # (auto) 0.3 10 ^3/uL (0-1.3); Monocytes % (auto) 5.6 % (0.0-12.0); Neutrophils # (auto) 3.9 10 ^3/uL (1.6-8.6); Neutrophils % (auto) 74.8 % (37.0-80.0); Nucleated Red Blood Cells % 0.1 %; Platelet Count (auto) 242 10^3/uL (140-450); Red Blood Cells 4.16 10^6/uL (4.0-5.20); Red Cell Distribution Width 13.7 % (11.8-14.3); White Blood Cell 5.2 10^3/uL (4.4-10.8)
[2024-05-26 07:41] LABS: Albumin 3.9 g/dL (3.2-4.8); Alkaline Phosphatase 85 U/L (46-116); Anion Gap 8 (5-15); Aspartate Aminotransferase 31 U/L (13-40); BUN/Creatinine Ratio 9.8 (10.0-20.0); Calcium 9.3 mg/dL (8.7-10.4); Carbon Dioxide 24 mmol/L (20-31); Potassium 3.6 mmol/L (3.5-5.1); Sodium 140 mmol/L (136-145)
[2024-05-26 07:42] LABS: Alanine Aminotransferase 134 U/L (7-40); Bilirubin, Total 0.7 mg/dL (0.2-1.0); Blood Urea Nitrogen 6 mg/dL (9-23); Chloride 108 mmol/L (98-107); Glucose 107 mg/dL (74-106); Total Protein 6.2 g/dL (5.7-8.2)
--- NOTE | 2024-05-26 09:30 | DVHPN2 ---
Reviewed: Care Plan, H&P, Labs, Medications, Previous Orders, Radiology Changes from previous H/P or p: No Changes Eyes: No Pain, No Vision change, No Conjunctivae inflammation, No Eyelid inflammation, No Other, No Redness ENT: No Ear pain, No Ear discharge, No Nose pain, No Nose discharge, No Nose congestion, No Mouth pain, No Mouth swelling, No Throat pain, No Throat swelling, No Other Cardiovascular: No Chest Pain, No Palpitations, No Orthopnea, No Paroxysmal Noc. Dyspnea, No Edema, No Lt Headedness, No Other Respiratory: No Cough, No Dry; Shortness of breath; No SOB with excertion, No Wheezing, No Hemoptysis, No Pleuritic Pain, No Sputum, No Other Gastrointestinal: No Nausea, No Vomiting, No Abdominal Pain, No Diarrhea, No Constipation, No Melena, No Hematochezia, No Other Genitourinary: No Dysuria, No Frequency, No Incontinence, No Hematuria, No Retention, No Other Musculoskeletal: arm pain Skin: Bruising, Other (Multiple sutures in place on bilateral upper arms) Objective Vitals Vital Signs Date Time Temp Pulse Resp B/P (MAP) Pulse Ox O2 Delivery O2 Flow Rate FiO2 05/26/24 07:51 97.9 87 19 118/74 (89) 98 97.9 05/25/24 20:00 Room Air* 0 21 Intake/Output Intake and Output 05/26/24 07:00 Intake Total 3630 ml Balance 3630 ml Intake Oral 1580 ml IV Total 2050 ml # Voids 6 Medications Current Medications Medications Dose Ordered Sig/Gisele Route Start Time Stop Time Status Last Admin Dose Admin Ceftriaxone Sodium 50 ml @ 100 mls/hr DAILY@09 IV 05/24/24 09:00 05/26/24 08:38 100 MLS/HR Clindamycin Phosphate 50 ml @ 50 mls/hr Q8HR IV 05/23/24 14:00 05/26/24 06:22 50 MLS/HR Acetaminophen/ Hydrocodone Bitart 1 tab Q4HP PRN PO 05/23/24 09:15 05/25/24 20:55 1 TAB Ondansetron HCl 4 mg Q4HP PRN IV 05/23/24 09:15 05/23/24 15:17 4 MG Acetaminophen 650 mg Q6HP PRN PO 05/23/24 09:15 Morphine Sulfate 2 mg Q4HPRN PRN IV 05/23/24 09:15 05/23/24 15:17 2 MG Bacitracin 1 applic TID TOP 05/23/24 14:00 05/26/24 06:22 1 APPLIC Sodium Chloride 1,000 ml @ 150 mls/hr Q6H40M IV 05/24/24 13:45 05/26/24 06:22 150 MLS/HR Enoxaparin Sodium 40 mg DAILY SC 05/25/24 10:00 05/26/24 08:38 40 MG Laboratory Results Laboratory Tests 05/26/24 06:02 Chemistry Test 05/26/24 06:02 Albumin 3.9 g/dL (3.2-4.8) Calcium Level 9.3 mg/dL (8.7-10.4) Total Protein 6.2 g/dL (5.7-8.2) Coagulation Test 05/25/24 10:30 Prothrombin Time 10.6 sec (9.3-11.8) Prothrombin Time INR 1.00 (0.9-1.15) Activated Partial Thromboplast Time 27.9 SEC (24.5-34.5) LFT Test 05/26/24 06:02 Alanine Aminotransferase (ALT) 134 U/L (7-40) H Alkaline Phosphatase 85 U/L (46-116) Aspartate Amino Transferase (AST) 31 U/L (13-40) Total Bilirubin 0.7 mg/dL (0.2-1.0) Urinalysis Test 05/25/24 21:15 Urine Color Colorless (Yellow) Urine Clarity Clear (Clear) Urine pH 6.5 (5.0-9.0) Urine Specific [place] 1.005 (1.001-1.035) Urine Protein Negative (Negative) Urine Ketones Negative (Negative) Urine Blood Negative /uL (Negative) Urine Nitrite Negative (Negative) Urine Bilirubin Negative (Negative) Urine Urobilinogen Normal mg/dL (Negative) Urine Leukocyte Esterase Negative /uL (Negative) Urine RBC None seen /hpf (0 - 4) Urine Microscopic WBC < 1 /HPF (0-5) Urine Squamous Epithelial Cells Few /hpf (<5) Urine Bacteria None seen /hpf (None Seen) Urine Glucose Normal mg/dL (Normal) Microbiology Microbiology Date/Time Source Procedure Growth Status 05/24/24 15:06 Blood Blood Culture - Preliminary NO GROWTH AFTER 24 HOURS OF INCUBATION. Resulted Assessment/Plan Assessment/Plan Cellulitis bilateral upper extremityies, left worse than the right, secondary to dog bite: Rocephin 1 g IV daily clindamycin 300 mg IV q.8 hours, pain medication Blood cultures negative DVT left upper extremity ruled out DVT right upper extremity ruled out Acute dehydration: IV fluids CT right upper and left upper extremity negative for any osteomyelitis Patient Needs IV antibiotics for at least three weeks Pts cousin Shruti [phone] at bedside Status post tunneled catheter placement right IJ by radiologist secondary to poor IV access Patient will be [facility] for IV antibiotics for three weeks and the patient is willing Plan discussed with: Patient My Orders Orders - DAMIEN LEIGH MD Procedure Category Date Status Time * Picc Line Consult CONS 05/25/24 Transmitted 09:52 Comprehensive LAB 05/25/24 In Process Hepatitis Panel 09:54 * Gi Dvh Sample Book Maker CONS 05/25/24 Transmitted 09:54 Enoxaparin Sodium PHA 05/25/24 In Process (Lovenox) 10:00 Bi Lat Upper Dvt US 05/25/24 Resulted 09:52 * Radiologist Consult CONS 05/25/24 Transmitted 13:31 Date of Service: May 26, 2024 Billing Provider: DAMIEN LEIGH MD Common Visit Codes: [id number] INP/OBS CARE(HIGH) DAMIEN LEIGH MD May 26, 2024 09:30
--- NOTE | 2024-05-26 09:37 | DVHDS2 ---
Discharge Summary Date of Admission May 23, 2024 at 09:11 Date of Discharge: May 26, 2024 Admitting Diagnosis Swelling pain and redness bilateral upper extremities secondary to dog bite Wounds: Multiple dog bite wounds bilateral upper extremities Labs/Diagnostic Data: Laboratory Results Test 05/26/24 06:02 05/25/24 21:15 05/25/24 20:40 05/25/24 10:30 White Blood Count 5.2 10^3/uL (4.4-10.8) Red Blood Count 4.16 10^6/uL (4.0-5.20) Hemoglobin 12.6 g/dL (12.2-16.2) Hematocrit 36.9 % (36.0-46.0) Mean Corpuscular Volume 88.6 fL (80.0-100.0) Mean Corpuscular Hemoglobin 30.2 pg (28.0-32.0) Mean Corpuscular Hemoglobin Concent 34.1 g/dL (32.0-36.0) Red Cell Distribution Width 13.7 % (11.8-14.3) Platelet Count 242 10^3/uL (140-450) Mean Platelet Volume 7.4 fL (6.9-10.8) Neutrophils (%) (Auto) 74.8 % (37.0-80.0) Lymphocytes (%) (Auto) 16.4 % (10.0-50.0) Monocytes (%) (Auto) 5.6 % (0.0-12.0) Eosinophils (%) (Auto) 2.9 % (0.0-7.0) Basophils (%) (Auto) 0.3 % (0.0-2.0) Neutrophils # (Auto) 3.9 10 ^3/uL (1.6-8.6) Lymphocytes # (Auto) 0.9 10 ^3/uL (0.4-5.4) Monocytes # (Auto) 0.3 10 ^3/uL (0-1.3) Eosinophils # (Auto) 0.1 10 ^3/uL (0-0.8) Basophils # (Auto) 0 10 ^3/uL (0-0.2) Nucleated Red Blood Cells 0.1 % Sodium Level 140 mmol/L (136-145) Potassium Level 3.6 mmol/L (3.5-5.1) Chloride Level 108 mmol/L (98-107) Carbon Dioxide Level 24 mmol/L (20-31) Anion Gap 8 (5-15) Blood Urea Nitrogen 6 mg/dL (9-23) Creatinine 0.61 mg/dL (0.550-1.02) Glomerular Filtration Rate Calc 114 mL/min (>90) BUN/Creatinine Ratio 9.8 (10.0-20.0) Serum Glucose 107 mg/dL (74-106) Calcium Level 9.3 mg/dL (8.7-10.4) Total Bilirubin 0.7 mg/dL (0.2-1.0) Aspartate Amino Transferase (AST) 31 U/L (13-40) Alanine Aminotransferase (ALT) 134 U/L (7-40) Alkaline Phosphatase 85 U/L (46-116) Total Protein 6.2 g/dL (5.7-8.2) Albumin 3.9 g/dL (3.2-4.8) Urine Color Colorless (Yellow) Urine Clarity Clear (Clear) Urine pH 6.5 (5.0-9.0) Urine Specific [employer] 1.005 (1.001-1.035) Urine Protein Negative (Negative) Urine Ketones Negative (Negative) Urine Blood Negative /uL (Negative) Urine Nitrite Negative (Negative) Urine Bilirubin Negative (Negative) Urine Urobilinogen Normal mg/dL (Negative) Urine Leukocyte Esterase Negative /uL (Negative) Urine RBC None seen /hpf (0 - 4) Urine Microscopic WBC < 1 /HPF (0-5) Urine Squamous Epithelial Cells Few /hpf (<5) Urine Bacteria None seen /hpf (None Seen) Urine Glucose Normal mg/dL (Normal) SARS-CoV-2 Antigen (Rapid) Negative (NEGATIVE) Prothrombin Time 10.6 sec (9.3-11.8) Prothrombin Time INR 1.00 (0.9-1.15) Activated Partial Thromboplast Time 27.9 SEC (24.5-34.5) Test 05/23/24 10:17 Lactic Acid Level 1.9 mmol/L (0.4-2.0) Other Laboratory Tests 05/26/24 06:02 Brief Hx & Hospital Course: 44-year-old female came to the ER with a history that she was bitten by you dog multiple times for bilateral upper extremities and LBP swelling tenderness and pain next day. came to the ER and admitted for severe cellulitis bilateral upper extremities patient was started on Rocephin 1 g IV daily and clindamycin 300 mg IV q.[address] bilateral upper extremity negative for any osteomyelitis. Venous ultrasound ruled out DVT of the bilateral upper extremities. patient had poor IV access secondary to multiple dog bites on the upper extremities and right IJ tunneled cath was by the radiologist. Received IV fluids for dehydration and pain medications. [facility] to receive IV antibiotics for three weeks: Rocephin 1 g IV daily for three weeks, clindamycin 300 mg IV q.8 hours for three weeks. Patient feels better with the IV antibiotics. Consults/Reason for consult None Operations or Procedures CT bilateral upper extremities Venous ultrasound bilateral upper extremities Right IJ placement Condition at Discharge: Fair Final Diagnosis/Problems List Cellulitis bilateral upper extremityies, left worse than the right, secondary to dog bite: Rocephin 1 g IV daily clindamycin 300 mg IV q.8 hours, pain medication Blood cultures negative DVT left upper extremity ruled out DVT right upper extremity ruled out Acute dehydration: IV fluids CT right upper and left upper extremity negative for any osteomyelitis [facility]charge Disposition[facility] Discharge Instruct/Medications Diet: Regular Activity: Light activity Follow Up/Referral: Follow up with the longterm Dr Medications: Rocephin 1 g IV daily for three weeks Clindamycin 300 mg IV q.8 hours for three weeks 39 (Time taken for discharge summary 39 minutes) Discharge Statement: "Patient was advised to return to the ER or call 911 if any headaches, dizziness, shortness of breath, chest pain, abdominal pain, bleeding, fevers, or worsening of medical condition. Patient was counseled about treatment plan, medications, possible side effects, patientverbalized understanding. All questions were answered to the best of my ability. This discharge took greater then 30 minutes in planning, reviewing documentation, counseling the patient, and discussing with other team members." ASSESSMENT ASSESSMENT Hospital Course Uneventful Assessment Cellulitis bilateral upper extremityies, left worse than the right, secondary to dog bite: Rocephin 1 g IV daily clindamycin 300 mg IV q.8 hours, pain medication Blood cultures negative DVT left upper extremity ruled out DVT right upper extremity ruled out Acute dehydration: IV fluids CT right upper and left upper extremity negative for any osteomyelitis Date of Service: May 26, 2024 Billing Provider: DAMIEN LEIGH MD Common Visit Codes: [id number] DISCH DAY >30min DAMIEN LEIGH MD May 26, 2024 09:37
--- NOTE | 2024-05-26 12:38 | DVHINCON2 ---
Date of service: May 26, [address] Brower History of Present Illness This female presented with complaints of arm pain and swelling dog bite Patient had cholecystectomy cholecystectomy Abnormal liver enzymes and hence the reason for the GI consult Past Medical History Diabetes hyperlipidemia Past Surgical History Cholecystectomy hysterectomy Family History: Diabetes mellitus G8 MOTHER Hypercholesterolemia G8 MOTHER Family History Noncontributory Social History Denies smoking or drink Allergies: Coded Allergies: NO KNOWN ALLERGIES (Unverified , 12/04/14) Home Meds Active Scripts Amoxicillin & Pot Clavulanate (AUGMENTIN TABLET) 875 Mg Tb, 875 MG PO BID for 10 Days, #20 TAB 0 Refills Prov:MANAV MCNEIL CATTLE SPRAYER 05/21/24 Hydrocodone-Acetaminophen (Hydrocodone Bitartrate/AC 5-325 mg) 1 Tab Tab, 1 TAB PO Q6HP PRN for 3 Days, #12 TAB 0 Refills Prov:MANAV MCNEIL [employer] SPRAYER 05/21/24 Review of Systems Noncontributory Vital Signs Vital Signs Date Time Temp Pulse Resp B/P (MAP) Pulse Ox O2 Delivery O2 Flow Rate FiO2 05/26/24 08:00 Room Air* 0 21 05/26/24 07:51 97.9 87 19 118/74 (89) 98 97.9 Physical Exam Originally built and nourished female in no acute distress vital signs stable HEENT examination no pallor no icterus neck was supple no lymphadenopathy chest was bilaterally symmetrical lungs are clear cardiovascular unremarkable Abdomen soft nontender no masses bowel sounds normal extremities no edema no varicosities Labs/Diagnostic Data Labs Test 05/26/24 06:02 05/25/24 21:15 05/25/24 20:40 05/25/24 10:30 Range/Units White Blood Count 5.2 4.4-10.8 10^3/uL Red Blood Count 4.16 4.0-5.20 10^6/uL Hemoglobin 12.6 12.2-16.2 g/dL Hematocrit 36.9 36.0-46.0 % Mean Corpuscular Volume 88.6 80.0-100.0 fL Mean Corpuscular Hemoglobin 30.2 28.0-32.0 pg Mean Corpuscular Hemoglobin Concent 34.1 32.0-36.0 g/dL Red Cell Distribution Width 13.7 11.8-14.3 % Platelet Count 242 140-450 10^3/uL Mean Platelet Volume 7.4 6.9-10.8 fL Neutrophils (%) (Auto) 74.8 37.0-80.0 % Lymphocytes (%) (Auto) 16.4 10.0-50.0 % Monocytes (%) (Auto) 5.6 0.0-12.0 % Eosinophils (%) (Auto) 2.9 0.0-7.0 % Basophils (%) (Auto) 0.3 0.0-2.0 % Neutrophils # (Auto) 3.9 1.6-8.6 10 ^3/uL Lymphocytes # (Auto) 0.9 0.4-5.4 10 ^3/uL Monocytes # (Auto) 0.3 0-1.3 10 ^3/uL Eosinophils # (Auto) 0.1 0-0.8 10 ^3/uL Basophils # (Auto) 0 0-0.2 10 ^3/uL Nucleated Red Blood Cells 0.1 % Sodium Level 140 136-145 mmol/L Potassium Level 3.6 3.5-5.1 mmol/L Chloride Level 108 H 98-107 mmol/L Carbon Dioxide Level 24 20-31 mmol/L Anion Gap 8 5-15 Blood Urea Nitrogen 6 L 9-23 mg/dL Creatinine 0.61 0.550-1.02 mg/dL Glomerular Filtration Rate Calc 114 >90 mL/min BUN/Creatinine Ratio 9.8 L 10.0-20.0 Serum Glucose 107 H 74-106 mg/dL Calcium Level 9.3 8.7-10.4 mg/dL Total Bilirubin 0.7 0.2-1.0 mg/dL Aspartate Amino Transferase (AST) 31 13-40 U/L Alanine Aminotransferase (ALT) 134 H 7-40 U/L Alkaline Phosphatase 85 46-116 U/L Total Protein 6.2 5.7-8.2 g/dL Albumin 3.9 3.2-4.8 g/dL Urine Color Colorless Yellow Urine Clarity Clear Clear Urine pH 6.5 5.0-9.0 Urine Specific [place] 1.005 1.001-1.035 Urine Protein Negative Negative Urine Ketones Negative Negative Urine Blood Negative Negative /uL Urine Nitrite Negative Negative Urine Bilirubin Negative Negative Urine Urobilinogen Normal Negative mg/dL Urine Leukocyte Esterase Negative Negative /uL Urine RBC None seen 0 - 4 /hpf Urine Microscopic WBC < 1 0-5 /HPF Urine Squamous Epithelial Cells Few <5 /hpf Urine Bacteria None seen None Seen /hpf Urine Glucose Normal Normal mg/dL SARS-CoV-2 Antigen (Rapid) Negative NEGATIVE Prothrombin Time 10.6 9.3-11.8 sec Prothrombin Time INR 1.00 0.9-1.15 Activated Partial Thromboplast Time 27.9 24.5-34.5 SEC Test 05/23/24 10:17 Range/Units Lactic Acid Level 1.9 0.4-2.0 mmol/L Microbiology Date/Time Source Procedure Growth Status 05/24/24 15:06 Blood Blood Culture - Preliminary NO GROWTH AFTER 24 HOURS OF INCUBATION. Resulted Assessment 44-year-old female with a history of hysterectomy cholecystectomy with abnormal liver enzymes came with arm pain and swelling after dog bite ALT and AST were increased especially ALT alk phos is normal Enzymes are coming down Patient is going to be discharged today Plan/Recommendation Plans Recommend to do hepatitis panel before discharge Under follow the LFT as an outpatient If LFTs persistto be increased we may need further evaluation as an outpatient thank you Dr. Pierre Plan discussed with: Patient GUIDO PIERRE MD May 26, 2024 12:38
--- NOTE | 2024-05-26 18:57 | DVH ---
Procedure: XY CHEST XRAY 1 VIEW 05/26/2024 04:19 PM Indication: LINE PLACEMENT Comparison: XY CHEST XRAY 1 VIEW on DOS: 05/23/24 TECHNIQUE: XY CHEST XRAY 1 VIEW FINDINGS: Medical devices: A right subclavian central line with the tip in distal SVC. Cardiomediastinal: The heart is normal in size. Pulmonary vasculature is within normal limits. Lungs: No focal pulmonary opacity is seen. The costophrenic angles are clear. No pneumothorax. Bones/soft tissues: No acute abnormality is noted. IMPRESSION: 1. The right subclavian central line is satisfactory in position with the tip in distal SVC. No pneum othorax. 2. No acute cardiopulmonary disease.
[2024-05-27 01:00] VITALS: BP 112/69; PULSE 69; RESP 18; TEMP 98.4; O2SAT 97
[2024-05-27 05:00] VITALS: BP 124/78; PULSE 70; RESP 18; TEMP 97.6; O2SAT 98
[2024-05-27 09:19] VITALS: BP 120/81; PULSE 77; RESP 16; TEMP 98.1; O2SAT 98
--- NOTE | 2024-05-27 10:24 | DVHPN2 ---
Reviewed: Care Plan, H&P, Labs, Medications, Previous Orders, Radiology Changes from previous H/P or p: No Changes Eyes: No Pain, No Vision change, No Conjunctivae inflammation, No Eyelid inflammation, No Other, No Redness ENT: No Ear pain, No Ear discharge, No Nose pain, No Nose discharge, No Nose congestion, No Mouth pain, No Mouth swelling, No Throat pain, No Throat swelling, No Other Cardiovascular: No Chest Pain, No Palpitations, No Orthopnea, No Paroxysmal Noc. Dyspnea, No Edema, No Lt Headedness, No Other Respiratory: No Cough, No Dry; Shortness of breath; No SOB with excertion, No Wheezing, No Hemoptysis, No Pleuritic Pain, No Sputum, No Other Gastrointestinal: No Nausea, No Vomiting, No Abdominal Pain, No Diarrhea, No Constipation, No Melena, No Hematochezia, No Other Genitourinary: No Dysuria, No Frequency, No Incontinence, No Hematuria, No Retention, No Other Musculoskeletal: arm pain Skin: Bruising, Other (Multiple sutures in place on bilateral upper arms) Objective Vitals Vital Signs Date Time Temp Pulse Resp B/P (MAP) Pulse Ox O2 Delivery O2 Flow Rate FiO2 05/27/24 09:19 98.1 77 16 120/81 (94) 98 98.1 05/26/24 20:00 Room Air* 0 21 Intake/Output Intake and Output 05/27/24 07:00 Intake Total 4600 ml Output Total 800 ml Balance 3800 ml Intake Oral 2550 ml IV Total 2050 ml Output Urine Total 800 ml # Voids 5 Medications Current Medications Medications Dose Ordered Sig/Gisele Route Start Time Stop Time Status Last Admin Dose Admin Ceftriaxone Sodium 50 ml @ 100 mls/hr DAILY@09 IV 05/24/24 09:00 05/27/24 08:48 100 MLS/HR Clindamycin Phosphate 50 ml @ 50 mls/hr Q8HR IV 05/23/24 14:00 05/27/24 05:45 50 MLS/HR Acetaminophen/ Hydrocodone Bitart 1 tab Q4HP PRN PO 05/23/24 09:15 05/27/24 08:49 1 TAB Ondansetron HCl 4 mg Q4HP PRN IV 05/23/24 09:15 05/23/24 15:17 4 MG Acetaminophen 650 mg Q6HP PRN PO 05/23/24 09:15 Morphine Sulfate 2 mg Q4HPRN PRN IV 05/23/24 09:15 05/23/24 15:17 2 MG Bacitracin 1 applic TID TOP 05/23/24 14:00 05/27/24 05:45 1 APPLIC Sodium Chloride 1,000 ml @ 150 mls/hr Q6H40M IV 05/24/24 13:45 05/27/24 06:10 150 MLS/HR Enoxaparin Sodium 40 mg DAILY SC 05/25/24 10:00 05/27/24 08:50 40 MG Laboratory Results Laboratory Tests 05/26/24 06:02 Urinalysis Test 05/25/24 21:15 Urine Color Colorless (Yellow) Urine Clarity Clear (Clear) Urine pH 6.5 (5.0-9.0) Urine Specific [place] 1.005 (1.001-1.035) Urine Protein Negative (Negative) Urine Ketones Negative (Negative) Urine Blood Negative /uL (Negative) Urine Nitrite Negative (Negative) Urine Bilirubin Negative (Negative) Urine Urobilinogen Normal mg/dL (Negative) Urine Leukocyte Esterase Negative /uL (Negative) Urine RBC None seen /hpf (0 - 4) Urine Microscopic WBC < 1 /HPF (0-5) Urine Squamous Epithelial Cells Few /hpf (<5) Urine Bacteria None seen /hpf (None Seen) Urine Glucose Normal mg/dL (Normal) Microbiology Microbiology Date/Time Source Procedure Growth Status 05/24/24 15:06 Blood Blood Culture - Preliminary NO GROWTH AFTER 48 HOURS OF INCUBATION. Resulted 05/23/24 20:45 Arm Right Gram Stain - Final Resulted 05/23/24 20:45 Arm Right Wound Culture - Preliminary Resulted Labs and/or images reviewed: Labs reviewed by me, Image(s) reviewed by me Assessment/Plan Assessment/Plan Cellulitis bilateral upper extremityies, left worse than the right, secondary to dog bite: Rocephin 1 g IV daily clindamycin 300 mg IV q.8 hours, pain medication, marginal improvement Blood cultures negative DVT left upper extremity ruled out DVT right upper extremity ruled out Acute dehydration: IV fluids CT right upper and left upper extremity negative for any osteomyelitis Patient Needs IV antibiotics for at least three weeks Pts cousin Shruti [phone] at bedside Status post tunneled catheter placement right IJ by radiologist secondary to poor IV access, okay to use Patient will be discharged to care home facility for IV antibiotics for three weeks and the patient is willing Awaiting authorization from [facility] Plan discussed with: Patient My Orders Orders - DAMIEN LEIGH MD Procedure Category Date Status Time Chest Xray 1 View XY 05/26/24 Resulted 16:02 Communication Order ORDERS 05/27/24 Verified 10:22 Date of Service: May 27, 2024 Billing Provider: DAMIEN LEIGH MD Common Visit Codes: [id number] INP/OBS CARE(HIGH) DAMIEN LEIGH MD May 27, 2024 10:24
[2024-05-27 13:00] VITALS: BP 134/88; PULSE 83; RESP 16; TEMP 98.3; O2SAT 96
--- NOTE | 2024-05-27 15:04 | DVHPN2 ---
Progress Note - Dictate Date Seen: May 27, 2024 Medical Necessity Reason Pt with a Central, PICC or Fol: No Subjective Doing better with still with some pains in the elbow from cellulitis No fever no icterus vital signs Vital Sign Date Time Temp Pulse Resp B/P (MAP) Pulse Ox O2 Delivery O2 Flow Rate FiO2 05/27/24 13:00 98.3 83 16 134/88 (103) 96 98.3 05/27/24 08:00 Room Air* 0 21 Total Intake and Output 05/26/24 05/26/24 05/27/24 15:00 23:00 07:00 Intake Total 150 ml 2950 ml 1500 ml Output Total 800 ml Balance 150 ml 2150 ml 1500 ml medications Current Medications Medications Dose Ordered Sig/Gisele Route Start Time Stop Time Status Last Admin Dose Admin Ceftriaxone Sodium 50 ml @ 100 mls/hr DAILY@09 IV 05/24/24 09:00 05/27/24 08:48 100 MLS/HR Clindamycin Phosphate 50 ml @ 50 mls/hr Q8HR IV 05/23/24 14:00 05/27/24 13:48 50 MLS/HR Acetaminophen/ Hydrocodone Bitart 1 tab Q4HP PRN PO 05/23/24 09:15 05/27/24 13:48 1 TAB Ondansetron HCl 4 mg Q4HP PRN IV 05/23/24 09:15 05/23/24 15:17 4 MG Acetaminophen 650 mg Q6HP PRN PO 05/23/24 09:15 Morphine Sulfate 2 mg Q4HPRN PRN IV 05/23/24 09:15 05/23/24 15:17 2 MG Bacitracin 1 applic TID TOP 05/23/24 14:00 05/27/24 13:48 1 APPLIC Sodium Chloride 1,000 ml @ 150 mls/hr Q6H40M IV 05/24/24 13:45 05/27/24 06:10 150 MLS/HR Enoxaparin Sodium 40 mg DAILY SC 05/25/24 10:00 05/27/24 08:50 40 MG objective Abdomen soft no tenderness No hepatomegaly Labs were better laboratory and microbiology Laboratory Tests 05/26/24 06:02 Test 05/26/24 06:02 Range/Units Serum Glucose 107 H 74-106 mg/dL Assessment/Plan Patient has continued to account IV antibiotics Awaiting the hepatitis panel results We will recommend to follow the liver enzymes closely and watch for the results of the hepatitis We will need follow-up if necessary as an outpatient enzymes continue to persist to be high Thank you Dr. Valles Plan discussed with: Patient GUIDO VALLES MD May 27, 2024 15:04
[2024-05-27 17:19] VITALS: BP 137/93; PULSE 78; RESP 16; TEMP 98.4; O2SAT 97
[2024-05-27 21:00] VITALS: BP 132/82; PULSE 69; RESP 18; TEMP 98.3; O2SAT 97
[2024-05-28 05:00] VITALS: BP 117/66; PULSE 82; RESP 19; TEMP 98; O2SAT 95
[2024-05-28] MEDS: ACETAMINOPHEN 325 MG TAB PO PRN (05:28)
[2024-05-28 08:00] VITALS: RESP 18
[2024-05-28 09:00] VITALS: BP 120/78; PULSE 84; RESP 18; TEMP 97.7; O2SAT 95
[2024-05-28 09:37] LABS: Hepatitis B Core Total AB Negative (Negative)
--- NOTE | 2024-05-28 12:33 | DVHPN2 ---
Reviewed: Care Plan, H&P, Labs, Medications, Previous Orders, Radiology Changes from previous H/P or p: No Changes Eyes: No Pain, No Vision change, No Conjunctivae inflammation, No Eyelid inflammation, No Other, No Redness ENT: No Ear pain, No Ear discharge, No Nose pain, No Nose discharge, No Nose congestion, No Mouth pain, No Mouth swelling, No Throat pain, No Throat swelling, No Other Cardiovascular: No Chest Pain, No Palpitations, No Orthopnea, No Paroxysmal Noc. Dyspnea, No Edema, No Lt Headedness, No Other Respiratory: No Cough, No Dry; Shortness of breath; No SOB with excertion, No Wheezing, No Hemoptysis, No Pleuritic Pain, No Sputum, No Other Gastrointestinal: No Nausea, No Vomiting, No Abdominal Pain, No Diarrhea, No Constipation, No Melena, No Hematochezia, No Other Genitourinary: No Dysuria, No Frequency, No Incontinence, No Hematuria, No Retention, No Other Musculoskeletal: arm pain Skin: Bruising, Other (Multiple sutures in place on bilateral upper arms) Objective Vitals Vital Signs Date Time Temp Pulse Resp B/P (MAP) Pulse Ox O2 Delivery O2 Flow Rate FiO2 05/28/24 09:00 97.7 84 18 120/78 (92) 95 97.7 05/27/24 20:00 Room Air* 0 21 Intake/Output Intake and Output 05/28/24 07:00 Intake Total 2225 ml Balance 2225 ml Intake Oral 625 ml IV Total 1600 ml # Voids 5 Medications Current Medications Medications Dose Ordered Sig/Gisele Route Start Time Stop Time Status Last Admin Dose Admin Ceftriaxone Sodium 50 ml @ 100 mls/hr DAILY@09 IV 05/24/24 09:00 05/28/24 10:37 100 MLS/HR Clindamycin Phosphate 50 ml @ 50 mls/hr Q8HR IV 05/23/24 14:00 05/28/24 06:16 50 MLS/HR Acetaminophen/ Hydrocodone Bitart 1 tab Q4HP PRN PO 05/23/24 09:15 05/27/24 13:48 1 TAB Ondansetron HCl 4 mg Q4HP PRN IV 05/23/24 09:15 05/23/24 15:17 4 MG Acetaminophen 650 mg Q6HP PRN PO 05/23/24 09:15 05/28/24 05:28 650 MG Morphine Sulfate 2 mg Q4HPRN PRN IV 05/23/24 09:15 05/27/24 20:23 2 MG Bacitracin 1 applic TID TOP 05/23/24 14:00 05/28/24 06:16 1 APPLIC Sodium Chloride 1,000 ml @ 150 mls/hr Q6H40M IV 05/24/24 13:45 05/28/24 03:00 150 MLS/HR Enoxaparin Sodium 40 mg DAILY SC 05/25/24 10:00 05/28/24 10:37 40 MG Laboratory Results Laboratory Tests 05/26/24 06:02 Urinalysis Test 05/25/24 21:15 Urine Color Colorless (Yellow) Urine Clarity Clear (Clear) Urine pH 6.5 (5.0-9.0) Urine Specific [place] 1.005 (1.001-1.035) Urine Protein Negative (Negative) Urine Ketones Negative (Negative) Urine Blood Negative /uL (Negative) Urine Nitrite Negative (Negative) Urine Bilirubin Negative (Negative) Urine Urobilinogen Normal mg/dL (Negative) Urine Leukocyte Esterase Negative /uL (Negative) Urine RBC None seen /hpf (0 - 4) Urine Microscopic WBC < 1 /HPF (0-5) Urine Squamous Epithelial Cells Few /hpf (<5) Urine Bacteria None seen /hpf (None Seen) Urine Glucose Normal mg/dL (Normal) Microbiology Microbiology Date/Time Source Procedure Growth Status 05/24/24 15:06 Blood Blood Culture - Preliminary NO GROWTH AFTER 72 HOURS OF INCUBATION. Resulted 05/23/24 20:45 Arm Right Gram Stain - Final Resulted 05/23/24 20:45 Arm Right Wound Culture - Preliminary Resulted Labs and/or images reviewed: Labs reviewed by me, Image(s) reviewed by me Assessment/Plan Assessment/Plan Cellulitis bilateral upper extremityies, left worse than the right, secondary to dog bite: Rocephin 1 g IV daily clindamycin 300 mg IV q.8 hours, pain medication, marginal improvement Blood cultures negative DVT left upper extremity ruled out DVT right upper extremity ruled out Acute dehydration: IV fluids CT right upper and left upper extremity negative for any osteomyelitis Patient Needs IV antibiotics for at least three weeks Pts cousin Shruti [phone] at bedside Status post tunneled catheter placement right IJ by radiologist secondary to poor IV access, okay to use Patient will be discharged to [place] [facility] for IV antibiotics for three weeks and the patient is willing Awaiting authorization from [facility] Examined today patient is still complaining of pain bilateral upper extremities with swelling and tenderness and having difficulty closing the fist because of cellulitis Requested protective services social worker to fax the clinical info to [facility] to get authorization Plan discussed with: Patient My Orders Orders - DAMIEN LEIGH MD Procedure Category Date Status Time * Scaffolding [employer]per CONS 05/28/24 Transmitted Consult Date of Service: May 28, 2024 Billing Provider: DAMIEN LEIGH MD Common Visit Codes: [id number] INP/OBS CARE(HIGH) DAMIEN LEIGH MD May 28, 2024 12:33
[2024-05-28 12:50] LABS: Hepatitis A Total Antibody Negative (Negative); Hepatitis B Surface Antibody Negative (Negative); Hepatitis B Surface Antigen Negative (Negative); Hepatitis C Antibody Negative (Negative)
[2024-05-28 13:00] VITALS: BP 130/94; PULSE 84; RESP 20; TEMP 98.7; O2SAT 96
[2024-05-28 13:23] LABS: Basophils # (auto) 0 10 ^3/uL (0-0.2); Basophils % (auto) 0.3 % (0.0-2.0); Eosinophils # (auto) 0.1 10 ^3/uL (0-0.8); Eosinophils % (auto) 2.3 % (0.0-7.0); Hematocrit 38.7 % (36.0-46.0); Hemoglobin 13.5 g/dL (12.2-16.2); Lymphocytes # (auto) 0.8 10 ^3/uL (0.4-5.4); Lymphocytes % (auto) 15.4 % (10.0-50.0); Mean Corpuscular Hemoglobin 30.3 pg (28.0-32.0); Mean Corpuscular Hgb Conc. 34.8 g/dL (32.0-36.0); Mean Corpuscular Volume 87.1 fL (80.0-100.0); Monocytes # (auto) 0.2 10 ^3/uL (0-1.3); Monocytes % (auto) 4.4 % (0.0-12.0); Neutrophils # (auto) 4.2 10 ^3/uL (1.6-8.6); Neutrophils % (auto) 77.6 % (37.0-80.0); Nucleated Red Blood Cells % 0.4 %; Platelet Count (auto) 284 10^3/uL (140-450); Red Blood Cells 4.45 10^6/uL (4.0-5.20); Red Cell Distribution Width 13.8 % (11.8-14.3); White Blood Cell 5.4 10^3/uL (4.4-10.8)
[2024-05-28 14:08] LABS: Albumin 4.4 g/dL (3.2-4.8); Alkaline Phosphatase 77 U/L (46-116); Anion Gap 9 (5-15); Aspartate Aminotransferase 33 U/L (13-40); BUN/Creatinine Ratio 12.1 (10.0-20.0); Bilirubin, Total 0.6 mg/dL (0.2-1.0); Calcium 9.6 mg/dL (8.7-10.4); Carbon Dioxide 22 mmol/L (20-31); Chloride 106 mmol/L (98-107); Potassium 3.9 mmol/L (3.5-5.1); Sodium 137 mmol/L (136-145); Total Protein 6.6 g/dL (5.7-8.2)
[2024-05-28 14:09] LABS: Alanine Aminotransferase 92 U/L (7-40); Blood Urea Nitrogen 8 mg/dL (9-23); Glucose 136 mg/dL (74-106)
[2024-05-28 16:54] VITALS: BP 122/83; PULSE 76; RESP 18; TEMP 97.9; O2SAT 97
[2024-05-28 21:00] VITALS: BP 134/90; PULSE 75; RESP 16; TEMP 97.7; O2SAT 96
[2024-05-29 04:53] VITALS: BP 105/66; PULSE 72; RESP 16; TEMP 97.8; O2SAT 97
[2024-05-29 08:00] VITALS: PULSE 84; RESP 16
[2024-05-29 08:56] VITALS: BP 120/73; PULSE 84; RESP 16; TEMP 98.2; O2SAT 97
--- NOTE | 2024-05-29 11:10 | DVHPN2 ---
Reviewed: Care Plan, H&P, Labs, Medications, Previous Orders, Radiology Changes from previous H/P or p: No Changes Eyes: No Pain, No Vision change, No Conjunctivae inflammation, No Eyelid inflammation, No Other, No Redness ENT: No Ear pain, No Ear discharge, No Nose pain, No Nose discharge, No Nose congestion, No Mouth pain, No Mouth swelling, No Throat pain, No Throat swelling, No Other Cardiovascular: No Chest Pain, No Palpitations, No Orthopnea, No Paroxysmal Noc. Dyspnea, No Edema, No Lt Headedness, No Other Respiratory: No Cough, No Dry; Shortness of breath; No SOB with excertion, No Wheezing, No Hemoptysis, No Pleuritic Pain, No Sputum, No Other Gastrointestinal: No Nausea, No Vomiting, No Abdominal Pain, No Diarrhea, No Constipation, No Melena, No Hematochezia, No Other Genitourinary: No Dysuria, No Frequency, No Incontinence, No Hematuria, No Retention, No Other Musculoskeletal: arm pain Skin: Bruising, Other (Multiple sutures in place on bilateral upper arms) Objective Vitals Vital Signs Date Time Temp Pulse Resp B/P (MAP) Pulse Ox O2 Delivery O2 Flow Rate FiO2 05/29/24 08:56 98.2 84 16 120/73 (89) 97 98.2 05/28/24 20:00 Room Air* 0 21 Intake/Output Intake and Output 05/29/24 07:00 Intake Total 4840 ml Balance 4840 ml Intake Oral 2440 ml IV Total 2400 ml # Voids 6 # Bowel Movements 1 Medications Current Medications Medications Dose Ordered Sig/Gisele Route Start Time Stop Time Status Last Admin Dose Admin Ceftriaxone Sodium 50 ml @ 100 mls/hr DAILY@09 IV 05/24/24 09:00 05/29/24 09:42 100 MLS/HR Clindamycin Phosphate 50 ml @ 50 mls/hr Q8HR IV 05/23/24 14:00 05/29/24 05:40 50 MLS/HR Acetaminophen/ Hydrocodone Bitart 1 tab Q4HP PRN PO 05/23/24 09:15 05/28/24 23:47 1 TAB Ondansetron HCl 4 mg Q4HP PRN IV 05/23/24 09:15 05/23/24 15:17 4 MG Acetaminophen 650 mg Q6HP PRN PO 05/23/24 09:15 05/28/24 05:28 650 MG Morphine Sulfate 2 mg Q4HPRN PRN IV 05/23/24 09:15 05/27/24 20:23 2 MG Bacitracin 1 applic TID TOP 05/23/24 14:00 05/29/24 05:40 1 APPLIC Sodium Chloride 1,000 ml @ 150 mls/hr Q6H40M IV 05/24/24 13:45 05/29/24 03:55 150 MLS/HR Enoxaparin Sodium 40 mg DAILY SC 05/25/24 10:00 05/29/24 09:43 40 MG Laboratory Results Laboratory Tests 05/28/24 13:03 Chemistry Test 05/28/24 13:03 Albumin 4.4 g/dL (3.2-4.8) Calcium Level 9.6 mg/dL (8.7-10.4) Total Protein 6.6 g/dL (5.7-8.2) LFT Test 05/28/24 13:03 Alanine Aminotransferase (ALT) 92 U/L (7-40) H Alkaline Phosphatase 77 U/L (46-116) Aspartate Amino Transferase (AST) 33 U/L (13-40) Total Bilirubin 0.6 mg/dL (0.2-1.0) Urinalysis Test 05/25/24 21:15 Urine Color Colorless (Yellow) Urine Clarity Clear (Clear) Urine pH 6.5 (5.0-9.0) Urine Specific [place] 1.005 (1.001-1.035) Urine Protein Negative (Negative) Urine Ketones Negative (Negative) Urine Blood Negative /uL (Negative) Urine Nitrite Negative (Negative) Urine Bilirubin Negative (Negative) Urine Urobilinogen Normal mg/dL (Negative) Urine Leukocyte Esterase Negative /uL (Negative) Urine RBC None seen /hpf (0 - 4) Urine Microscopic WBC < 1 /HPF (0-5) Urine Squamous Epithelial Cells Few /hpf (<5) Urine Bacteria None seen /hpf (None Seen) Urine Glucose Normal mg/dL (Normal) Microbiology Microbiology Date/Time Source Procedure Growth Status 05/24/24 15:06 Blood Blood Culture - Preliminary NO GROWTH AFTER 72 HOURS OF INCUBATION. Resulted 05/23/24 20:45 Arm Right Gram Stain - Final Resulted 05/23/24 20:45 Arm Right Wound Culture - Preliminary Resulted Labs and/or images reviewed: Labs reviewed by me, Image(s) reviewed by me Assessment/Plan Assessment/Plan Cellulitis bilateral upper extremityies, left worse than the right, secondary to dog bite: Rocephin 1 g IV daily clindamycin 300 mg IV q.8 hours, pain medication, marginal improvement Blood cultures negative DVT left upper extremity ruled out DVT right upper extremity ruled out Acute dehydration: IV fluids CT right upper and left upper extremity negative for any osteomyelitis Patient Needs IV antibiotics for at least three weeks Patient received tetanus booster in the emergency room Pts cousin Shruti [phone] at bedside Status post tunneled catheter placement right IJ by radiologist secondary to poor IV access, okay to use Examined today patient is still complaining of pain bilateral upper extremities with swelling and tenderness and having difficulty closing the fist because of cellulitis IE gave authorization for [facility] placement [facility] Plan discussed with: Patient My Orders Orders - DAMIEN LEIGH MD Procedure Category Date Status Time * Clinical Ob CONS 05/28/24 Transmitted Consult Date of Service: May 29, 2024 Billing Provider: DAMIEN LEIGH MD Common Visit Codes: [id number] INP/OBS CARE(HIGH) DAMIEN LEIGH MD May 29, 2024 11:10
[2024-05-29 13:00] VITALS: BP 144/90; PULSE 83; RESP 18; TEMP 98; O2SAT 95
== END 2024-05-29 16:18 | DRG 383 ==
LOC: ER 06:56 → OVERFLOW 09:11 → EAST 09:15
PROVIDERS: ATTEND Family Medicine
PROC: 0JH63XZ Insertion of Tunneled Vascular Access Device into Chest Subcutaneous Tissue and Fascia, Percutaneous Approach (ICD-10-PCS; principal; 2024-05-25)
PROC: B518ZZA Fluoroscopy of Superior Vena Cava, Guidance (ICD-10-PCS; 2024-05-25)
PROC: B548ZZA Ultrasonography of Superior Vena Cava, Guidance (ICD-10-PCS; 2024-05-25)
PROC: 02H633Z Insertion of Infusion Device into Right Atrium, Percutaneous Approach (ICD-10-PCS; 2024-05-25)
DX: L03.114 Cellulitis of left upper limb (principal); E11.9 Type 2 diabetes mellitus without complications; E78.5 Hyperlipidemia, unspecified; Z20.822 Contact with and (suspected) exposure to COVID-19; E86.0 Dehydration; L03.113 Cellulitis of right upper limb; Z79.891 Long term (current) use of opiate analgesic; Z79.899 Other long term (current) drug therapy; Z80.0 Family history of malignant neoplasm of digestive organs; Z83.3 Family history of diabetes mellitus; Z90.710 Acquired absence of both cervix and uterus; Z90.49 Acquired absence of other specified parts of digestive tract
CPT/HCPCS: 36415; 36558; 71045; 73200; 77001; 80048; 80053; 81001; 83605; 85025; 85610; 85730; 86704; 86706; 86708; 86803; 87040; 87205; 87340; 87426; 93970; 96365; 96366; 96368; 96375; 96376; 99152; C1894; G0378; J2250; J2405; J3490